=== PATIENT | female | born 1975 | race Two or more races ===

== ENCOUNTER 2018-12-18 15:16 | Outpatient (CLI) | payer OTHER | END 2018-12-18 15:23 | disposition home or self-care (01) | LOC: MAMO-SONO 15:16 | DX: Z12.31 Encounter for screening mammogram for malignant neoplasm of breast (principal); Z87.898 Personal history of other specified conditions; N63.10 Unspecified lump in the right breast, unspecified quadrant; N63.20 Unspecified lump in the left breast, unspecified quadrant; N64.4 Mastodynia; N60.11 Diffuse cystic mastopathy of right breast ==

== ENCOUNTER 2020-10-18 12:23 | Outpatient (CLI) | payer OTHER | END 2020-10-18 12:46 | disposition home or self-care (01) | LOC: MAMO-SONO 12:23 | PROVIDERS: ATTEND Obstetrics & Gynecology Maternal & Fetal Medicine | DX: N63 Unspecified lump in breast (principal); Z12.31 Encounter for screening mammogram for malignant neoplasm of breast; N64.4 Mastodynia; N60.11 Diffuse cystic mastopathy of right breast ==

== ENCOUNTER 2024-07-13 10:33 | Outpatient (CLI) | payer OTHER | END 2024-07-13 10:38 | disposition home or self-care (01) | LOC: MAMO-SONO 10:33 | DX: Z12.31 Encounter for screening mammogram for malignant neoplasm of breast (principal); Z98.82 Breast implant status; N60.29 Fibroadenosis of unspecified breast; N92.1 Excessive and frequent menstruation with irregular cycle ==